=== PATIENT | female | born 1995 | race African-American/Black ===

== ENCOUNTER 2019-12-23 18:42 | Inpatient (IN) | payer MEDICAID, OTHER ==
[~2019-12-23] VITALS: Ht 160 cm; Wt 67.6 kg
[2019-12-23] MEDS ORDERED: MORPHINE SULFATE 4 MG/ML CPJ (NOT FOR IM USE) IV ONE (19:00)
[2019-12-23] MEDS ORDERED: ONDANSETRON HCL 4MG/2ML INJ IV ONE (19:00)
[2019-12-23] MEDS ORDERED: SODIUM CHLORIDE 0.9% 1,000 ML IV ONE (19:06)
[2019-12-23] MEDS ORDERED: HYDROMORPHONE HCL/PF 2MG/ML CPJ IV ONE ×3 (19:15→23:00)
[2019-12-23 19:31] LABS: CHLORIDE 107 mEq/L (98-107)
[2019-12-23 19:33] LABS: BASOPHILS % 0.7 % (0.0-2.0); EOSINOPHILS % 0.7 % (0.0-5.0); LYMPHOCYTES % 31.4 % (20.0-50.0); MEAN CORPUSCULAR HEMOGLOBIN 31.3 pg (28.0-32.0); MEAN CORPUSCULAR VOLUME 94.1 fL (81.0-99.0); MEAN PLATELET VOLUME 8.1 fl (7.4-10.4); NEUTROPHILS % 62.2 % (40.0-76.0); PLATELET 345 x1000/uL (130-400); RED BLOOD CELL COUNT 4.14 mill/uL (4.2-5.4); RED CELL DISTRIBUTION WIDTH 13.1 % (11.6-14.6)
[2019-12-23 19:34] LABS: ETHANOL BLOOD 147 mg/dL
[2019-12-23 19:38] LABS: PARTIAL THROMBOPLASTIN TIME 23.6 sec (23.4-31.0); PROTHROMBIN TIME 11.2 sec (9.6-11.0)
[2019-12-23 19:57] LABS: HCG SCREEN NEGATIVE
[2019-12-24] MEDS ORDERED: MORPHINE SULFATE 2 MG/ML CPJ (NOT FOR IM USE) IV PRN ×2 (05:00→08:15)
[2019-12-24] MEDS ORDERED: POTASSIUM CHLORIDE 20MEQ TABLET SR PO ONE (10:00)
[2019-12-24] MEDS ORDERED: HYDROMORPHONE HCL/PF 2MG/ML CPJ IV PRN (10:15)
[2019-12-24] MEDS ORDERED: FENTANYL CITRATE/PF 50MCG/ML 2ML VIAL IV ONE (10:15)
[2019-12-24] MEDS: LORAZEPAM 2MG/ML CPJ IV PRN (10:32)
[2019-12-24] MEDS ORDERED: FOLIC ACID 1 MG, THIAMINE HCL 100 MG, MVI, ADULT NO.1 10 ML in DEXTROSE 5% WATER 1,000 ML IV ONE ×4 (11:00)
[2019-12-24 13:00] VITALS: BP 203/149
[2019-12-24 14:00] VITALS: BP 203/149
[2019-12-24] MEDS ORDERED: CLONIDINE 0.2MG TABLET PO PRN (14:15)
[2019-12-24] MEDS: HYDROMORPHONE HCL/PF 2MG/ML CPJ IV PRN (14:23)
[2019-12-24] MEDS ORDERED: CLONIDINE 0.2MG TABLET PO SCH (14:30)
[2019-12-24] MEDS: HYDROCODONE/ACETAMINOPHEN 10/325MG TABLET PO PRN ×2 (14:31→18:56)
[2019-12-24 16:00] VITALS: BP 119/75
[2019-12-24 20:00] VITALS: BP 123/76
[2019-12-25] VITALS: BP 130/72
[2019-12-25] MEDS: HYDROCODONE/ACETAMINOPHEN 10/325MG TABLET PO PRN ×4 (00:36→22:38)
[2019-12-25 04:00] VITALS: BP 112/81
[2019-12-25 06:39] LABS: BASOPHILS % 0.7 % (0.0-2.0); EOSINOPHILS % 2.6 % (0.0-5.0); HEMOGLOBIN. 13.2 g/dL (12.0-16.0); LYMPHOCYTES % 34.5 % (20.0-50.0); MEAN CORPUSCULAR HEMOGLOBIN 32.8 pg (28.0-32.0); MEAN CORPUSCULAR VOLUME 94.5 fL (81.0-99.0); MEAN PLATELET VOLUME 8.4 fl (7.4-10.4); MONOCYTES % 8.6 % (2.0-8.0); NEUTROPHILS % 53.6 % (40.0-76.0); PLATELET 277 x1000/uL (130-400); RED BLOOD CELL COUNT 4.02 mill/uL (4.2-5.4); RED CELL DISTRIBUTION WIDTH 13.3 % (11.6-14.6)
[2019-12-25] MEDS ORDERED: BUPIVACAINE HCL/PF 0.25% (2.5MG/ML) 10ML ONE (06:51)
[2019-12-25] MEDS ORDERED: BACITRACIN 50,000 UNITS/VIAL ONE (06:51)
[2019-12-25] MEDS ORDERED: VANCOMYCIN HCL 1 GM/VIAL ONE (06:51)
[2019-12-25 07:03] LABS: CHLORIDE 107 mEq/L (98-107)
[2019-12-25] MEDS ORDERED: FENTANYL CITRATE/PF 50MCG/ML 2ML VIAL ONE ×2 (07:05→07:30)
[2019-12-25] MEDS ORDERED: ROCURONIUM BROMIDE 10MG/ML VIAL 5ML IV ONE (07:30)
[2019-12-25] MEDS ORDERED: CEFAZOLIN SODIUM 1000MG/VIAL ONE (07:30)
[2019-12-25] MEDS ORDERED: LIDOCAINE HCL/PF 1% 10 MG/ML 5ML VIAL ONE (07:30)
[2019-12-25] MEDS ORDERED: PROPOFOL 200MG/20ML VIAL IV ONE (07:30)
[2019-12-25] MEDS ORDERED: ONDANSETRON HCL 4MG/2ML INJ ONE (07:30)
[2019-12-25] MEDS ORDERED: SODIUM CHLORIDE 0.9% 10ML VIAL ONE (07:30)
[2019-12-25] MEDS ORDERED: MIDAZOLAM HCL 2 MG/2 ML VIAL ONE (07:30)
[2019-12-25] MEDS ORDERED: METOCLOPRAMIDE HCL 10MG/2ML VIAL ONE (07:30)
[2019-12-25] MEDS ORDERED: SUCCINYLCHOLINE CHLORIDE 200MG/10ML IV ONE (07:30)
[2019-12-25] MEDS ORDERED: NEOSTIGMINE METHYLSULFATE 1MG/ML 10 ML VIAL ONE (07:30)
[2019-12-25] MEDS ORDERED: GLYCOPYRROLATE 0.2 MG/ML 2ML VIAL ONE (07:30)
[2019-12-25] MEDS ORDERED: MEPERIDINE HCL/PF 25MG/ML CPJ IV PRN ×2 (09:00)
[2019-12-25] MEDS ORDERED: HYDROMORPHONE HCL/PF 2MG/ML CPJ IV PRN (09:00)
[2019-12-25] MEDS ORDERED: MORPHINE SULFATE 2 MG/ML CPJ (NOT FOR IM USE) IV PRN (09:00)
[2019-12-25] MEDS ORDERED: SODIUM CHLORIDE 0.9% 1,000 ML IV ONE (09:00)
[2019-12-25] MEDS ORDERED: ONDANSETRON HCL 4MG/2ML INJ IV PRN (09:00)
[2019-12-25] MEDS: LORAZEPAM 2MG/ML CPJ IV PRN (09:38)
[2019-12-25 12:00] VITALS: BP 130/83
[2019-12-25] MEDS ORDERED: CEFAZOLIN SODIUM 1000MG/VIAL IV SCH (14:00)
[2019-12-25] MEDS: CEFAZOLIN 1000MG PREMIX 50 ML IV SCH ×2 (15:25→22:38)
[2019-12-25] MEDS: HYDROMORPHONE HCL/PF 2MG/ML CPJ IV PRN (15:26)
[2019-12-25 16:00] VITALS: BP 150/102
[2019-12-25 20:00] VITALS: BP 141/89
[2019-12-26] VITALS: BP 131/80
[2019-12-26 04:00] VITALS: BP 138/73
[2019-12-26] MEDS: CEFAZOLIN 1000MG PREMIX 50 ML IV SCH ×2 (05:36→14:19)
[2019-12-26] MEDS: HYDROCODONE/ACETAMINOPHEN 10/325MG TABLET PO PRN ×3 (05:36→15:56)
[2019-12-26 07:08] LABS: BASOPHILS % 0.4 % (0.0-2.0); EOSINOPHILS % 3.5 % (0.0-5.0); HEMOGLOBIN. 11.6 g/dL (12.0-16.0); LYMPHOCYTES % 20.9 % (20.0-50.0); MEAN CORPUSCULAR HEMOGLOBIN 32.8 pg (28.0-32.0); MEAN CORPUSCULAR VOLUME 94.4 fL (81.0-99.0); MEAN PLATELET VOLUME 8.6 fl (7.4-10.4); MONOCYTES % 10.9 % (2.0-8.0); NEUTROPHILS % 64.3 % (40.0-76.0); PLATELET 245 x1000/uL (130-400); RED BLOOD CELL COUNT 3.53 mill/uL (4.2-5.4); RED CELL DISTRIBUTION WIDTH 12.9 % (11.6-14.6)
[2019-12-26 07:10] LABS: HEMATOCRIT. 33.3 % (36.0-48.0)
[2019-12-26 07:26] LABS: CHLORIDE 105 mEq/L (98-107)
[2019-12-26 08:00] VITALS: BP 144/79
[2019-12-26] MEDS ORDERED: HYDR-4009 PO (08:46)
[2019-12-26] MEDS ORDERED: ENOXAPARIN 40MG/0.4ML SYR SUBCUT SCH (09:00)
[2019-12-26] MEDS ORDERED: AMLODIPINE 5MG TABLET PO SCH (09:00)
[2019-12-26 12:00] VITALS: BP 149/95
[2019-12-26] MEDS ORDERED: AMLO5TAB88 MT (12:51)
[2019-12-26 16:00] VITALS: BP 117/68
[2019-12-26 16:57] VITALS: BP 117/68
== END 2019-12-26 17:51 | disposition home or self-care (01) | DRG 308 ==
LOC: ER 18:47 → 6EST 23:00 → CANRESERV 12-24 08:45 → ENRESERV 12-24 08:45 → EDBEDREQSVC 12-24 12:29 → ENRESERV 12-24 13:05
PROVIDERS: ADMIT Internal Medicine; ATTEND Internal Medicine
PROC: 0QS806Z Reposition Right Femoral Shaft with Intramedullary Internal Fixation Device, Open Approach (ICD-10-PCS; principal; 2019-12-25)
DX: S72.301A Unspecified fracture of shaft of right femur, initial encounter for closed fracture (principal); R65.10 Systemic inflammatory response syndrome (SIRS) of non-infectious origin without acute organ dysfunction; E87.6 Hypokalemia; F10.129 Alcohol abuse with intoxication, unspecified; I10 Essential (primary) hypertension; W10.9XXA Fall (on) (from) unspecified stairs and steps, initial encounter; Y93.89 Activity, other specified; Y92.89 Other specified places as the place of occurrence of the external cause; Y99.8 Other external cause status; Y90.6 Blood alcohol level of 120-199 mg/100 ml; Z03.818 Encounter for observation for suspected exposure to other biological agents ruled out
CPT/HCPCS: 36415; 71045; 73502; 73552; 76000; 80048; 80053; 80320; 84703; 85025; 86850; 86900; 93005; 93970; 97116; 97162; 97530; 99285; C1713; C1769; J0330; J0690; J1170; J1650; J2060; J2175; J2250; J2270; J2405; J2704; J2710; J2765; J3010; J3370; J3411; J3490; J7030; J7070; L1830; G0480; U0003-CS